=== PATIENT | female | born 1960 | race Caucasian/White ===

== ENCOUNTER 2017-05-20 10:41 | Day surgery (SDC) | payer OTHER ==
--- NOTE | 2017-05-14 11:02 | HISTORY AND PHYSICAL E ---
History and Physical NAME: VARUN TSAI : 1960 AGE: 56Y ADMITTED: 05/20/2017 ROOM: CHIEF COMPLAINT: Patient presented regarding colon screening; remote history of polyps. REFERRED BY: Laquita Person MD MEDICAL HISTORY: Patient has the followin. Patient was seen in 2002 regarding abdominal pain. She did have a 2 mm rectal polyp. The patient presented at this time regarding colonoscopy. 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 3. She did have colonoscopy in 2011 showing benign-looking polyp; 3 mm. Polyp was hyperplastic, benign polyp. 4. Hypertension. SURGICAL HISTORY: 1. Tubal ligation. 2. Tonsillectomy. SOCIAL HISTORY: Smokes a pack a day. Drinks occasional beer. ALLERGIES: No known allergy. REVIEWING OF SYSTEMS: CARDIAC: Hypertension. RESPIRATORY: Negative. GASTROINTESTINAL: History of polyps. MEDICATIONS: 1. Lisinopril. 2. Aspirin. 3. Metformin. PHYSICAL EXAMINATION: . PLAN: Scheduled for colonoscopy on 05/20/2017; Today's date is 05/13/2017. DICTATING PHYSICIAN: MIKI CORREIA M.D. [id number] PHY#: [id number] ID: [id number] JOB#: [id number] ACCT: [id number] cc:MIKI CORREIA M.D., TERESA L. M.D. >
[~2017-05-20 10:41] MED LIST: GLYCOPYRROLATE INJ 0.4 MG/2 ML VIAL ONE; NALOXONE HCL INJ/PF 0.4 MG/1 ML SDV ONE; ONDANSETRON HCL INJ/PF 4 MG/2 ML SDV ONE
[2017-05-20] MEDS ORDERED: EPINEPHRINE INJ 1 MG/10 ML DISP.SYRIN ONE (10:42)
[2017-05-20] MEDS ORDERED: FENTANYL CITRATE INJ/PF 100 MCG/2 ML AMPUL ONE (10:42)
[2017-05-20] MEDS ORDERED: GLUCAGON,HUMAN RECOMB 1 MG INJ ONE (10:42)
[2017-05-20] MEDS ORDERED: FLUMAZENIL INJ 0.5 MG/5 ML VIAL ONE (10:42)
[2017-05-20] MEDS: MIDAZOLAM 2 MG/2 ML INJ ONE ×2 (11:13→11:18)
[2017-05-20 12:03] LABS: ABSOLUTE EOSINOPHILS # (AUTO) 0.1 10^3/uL (0.0-0.6); ABSOLUTE LYMPHOCYTES (AUTO) 1.5 10^3/uL (0.5-4.7); ABSOLUTE MONOCYTES (AUTO) 0.5 10^3/uL (0.1-1.4); ABSOLUTE NEUT (AUTO) 1.8 10^3/uL (1.7-8.2); BASOPHILS % (AUTO) 1.2 % (0-2); EOSINOPHILS % (AUTO) 3.3 % (0-6); HEMATOCRIT 37.6 % (36.0-47.0); HEMOGLOBIN 12.7 g/dL (12.0-15.5); HGB HCT DIFFERENCE 0.5; LYMPHOCYTES % (AUTO) 38.3 % (13-45); MEAN CORPUSCULAR HEMOGLOBIN 31.8 pg (27.0-33.4); MEAN CORPUSCULAR HGB CONC 33.7 g/dL (32.0-36.0); MEAN CORPUSCULAR VOLUME 94 fl (80-97); RED BLOOD COUNT 3.98 10^6/uL (3.72-5.28); RED CELL DISTRIBUTION WIDTH 13.5 % (11.5-14.0); SEGMENTED NEUTROPHILS % (AUTO) 45.2 % (42-78); WHITE BLOOD COUNT 3.9 10^3/uL (4.0-10.5)
[2017-05-20 12:23] LABS: IRON 129.9 ug/dL (37-170)
[2017-05-20 12:52] VITALS: BP 126/80
--- NOTE | 2017-05-20 14:43 | DISCHARGE SUMMARY E ---
Discharge Summary NAME: VARUN TSAI : 1960 AGE: 56Y ADMITTED: 05/20/2017 DISCHARGED: 05/20/2017 SUMMARY: The patient is 56, known to us, had colonoscopy in 2011, benign 3 mm hyperplastic polyp. Today's follow-up colonoscopy shows no polyps. She does have AV malformation, asymptomatic, in the right colon, 3 mm, not bleeding. DISCHARGE PLAN: 1. Hold aspirin and nonsteroidals for 2 weeks and as much as needed avoided. Take Tylenol for pain if needed. 2. Consider follow-up colonoscopy in 10 years. 3. We will obtain baseline CBC, ferritin and iron. DICTATING PHYSICIAN: MIKI CORREIA M.D. [id number] PHY#: [id number] ID: [id number] JOB#: [id number] ACCT: [id number] cc:MIKI CORREIA M.D., TERESA L. M.D. >
--- NOTE | 2017-05-20 14:44 | OPERATIVE REPORT E ---
Operative Report NAME: VARUN TSAI : 1960 AGE: 56Y DATE OF SURGERY: 05/20/2017 ROOM: PREOPERATIVE DIAGNOSES: 1. Colon screening. 2. Remote history of polyp. OPERATION: Colonoscopy. SURGEON: MIKI CORREIA M.D. ANESTHESIA: Versed 4 and fentanyl 100. 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 It was visualized on previous colonoscopy and today's colon shows AV malformation in the ascending colon, not bleeding. TISSUE REMOVED OR ALTERED: None. PROCEDURE: Rectal exam normal. Sigmoid descending colon tortous, normal. Kinking and tortuosity sigmoid descending colon but no polyps. No malignancy. Transverse colon normal. Ascending colon shows AV malformation. Cecum normal. Scope withdrawn from cecum, ascending, transverse, descending, sigmoid all the way to the rectum. CONCLUSION: AV malformation, 3 mm ascending colon, not bleeding. No polyps. No malignancy. PLAN: Baseline CBC. Avoid aspirin and nonsteroidal. Will increase in 2 weeks and do not use except absolutely needed, try Tylenol. FINAL DIAGNOSIS: AV malformation not bleeding, right colon. No evidence of polyps. Consider followup colonoscopy 10 years. DICTATING PHYSICIAN: MIKI CORREIA M.D. [id number] PHY#: [id number] ID: [id number] JOB#: [id number] ACCT: [id number] cc:MIKI CORREIA M.D., TERESA L. M.D. >
== END 2017-05-20 12:30 | disposition home or self-care (01) ==
LOC: END 10:41
PROVIDERS: ATTEND Specialist
PROC: 0DJD8ZZ Inspection of Lower Intestinal Tract, Via Natural or Artificial Opening Endoscopic (ICD-10-PCS; principal; 2017-05-20 11:00)
DX: Z12.11 Encounter for screening for malignant neoplasm of colon (principal); Q27.33 Arteriovenous malformation of digestive system vessel; Q43.8 Other specified congenital malformations of intestine; I10 Essential (primary) hypertension; F17.210 Nicotine dependence, cigarettes, uncomplicated; Z86.010 Personal history of colon polyps; Z79.84 Long term (current) use of oral hypoglycemic drugs; Z79.82 Long term (current) use of aspirin; Z79.899 Other long term (current) drug therapy
CPT/HCPCS: 45378; 36415; 82962; 82728; 83540; 85025; J2250; J3010; J1610; J0171; J2310; J2405; J3490